=== PATIENT | male | born 1980 | race Caucasian/White ===

== ENCOUNTER 2022-07-09 10:38 | Day surgery (SDC) | payer OTHER, SELFPAY ==
[2022-07-09] VITALS (9 sets, daily range): BP systolic 137–162; BP diastolic 82–105; PULSE 87–98; RESP 12–18; TEMP 36.7–37.2; O2SAT 93–98; BMI 34.3
--- NOTE | 2022-07-09 10:50 | ED.ABDPAIN ---
HPI - Abdominal Pain General Chief Complaint: Abdominal Pain Stated Complaint: Abdominal pain Time Seen by Provider: 07/09/22 10:48 History of Present Illness HPI narrative: This 42-year-old male comes in reporting abdominal pain that began last evening. He had similar abdominal pain about a month ago that resolved after few days. He states that this pain is constant and is worse when taking a deep breath and when standing up straight. The pain is located in his lower abdomen and extends a bit toward the right lower quadrant. He does not report any nausea, vomiting, lightheadedness, diarrhea. He states that he did have some chills last night. He measured a temperature at 99? F. Related Data Home Medications Medication Instructions Recorded Confirmed No Known Home Medications 04/28/22 07/09/22 Allergies Allergy/AdvReac Type Severity Reaction Status Date / Time No Known Drug Allergies Allergy Verified 07/09/22 12:00 Review of Systems Status of ROS Reports: 10 or more systems reviewed and unremarkable except as noted in History and below Narrative Constitutional: No fevers, no weight gain or loss. Eyes: No discharge. No vision changes. HENT: No congestion, no sore throat, no ear pain. Cardiovascular: No chest pain, no palpitations. Respiratory: No shortness of breath, no wheezes, no cough. Gastrointestinal: No vomiting, no diarrhea. Abdominal pain as described above. Genitourinary: No dysuria, no hematuria. Musculoskeletal: Normal range of motion. Skin: No rashes, no pruritis. Neurological: No dizziness, weakness, sensory change, speech change. Endo/Heme/Allergies: No bruising or bleeding. No polydipsia. Pysch: no suicidality, no anxiety, no insomnia. All other systems reviewed and are negative. PFSH PFSH Social History Smoking Status: Never smoker Do you use any of these nicotine containing products: None How often do you have a drink containing alcohol: never How often do you have six or more drinks on one occasion: Never AUDIT-C Alcohol total score: 0 Non-prescribed substance use: denies use service: No Exam Narrative: Exam Narrative: Constitutional: Well-developed, well-nourished, no acute distress. HEENT: Normocephalic, atraumatic. Neck: Normal range of motion. Nontender. Supple. Heart: Regular. No murmurs. Normal rate. Intact distal pulses. Lungs: Clear to auscultation. No chest discomfort. No wheezes, rhonchi, or rales. Abdomen: Decreased bowel sounds. Tenderness in the lower abdomen with mild rebound tenderness. Genitalia: Deferred. Back: No midline tenderness. Normal range of motion. Extremities: Normal range of motion. No injury. Skin: Intact. No rash. Warm. No erythema or pallor. Neurologic: No altered sensation. No weakness. Alert and oriented. Psychiatric: No suicidality. No anxiety or depression. No insomnia. Nursing notes and vitals signs are reviewed. Const: Vital Signs, click to edit/add: Vital Signs - 24 hr 07/09/22 10:45 Temperature 98.9 F Pulse Rate [Left P ulse Oximeter] 95 Respiratory Rate 16 Blood Pressure [Ri ght Upper Arm] 150/95 H Pulse Oximetry 98 Oxygen Delivery Me thod Room Air Course Vital Signs Vital signs: Initial Vital Signs Temperature 98.9 F 07/09/22 10:45 Temperature Source Temporal Artery Scan 07/09/22 10:45 Pulse Rate 95 07/09/22 10:45 Pulse Rhythm 07/09/22 10:45 Pulse Strength 3+ Normal 07/09/22 10:45 Respiratory Rate 16 07/09/22 10:45 Blood Pressure 150/95 H 07/09/22 10:45 Blood Pressure Mean 113 07/09/22 10:45 Blood Pressure Position Sitting 07/09/22 10:45 Pulse Oximetry 98 07/09/22 10:45 Oxygen Delivery Method 07/09/22 10:45 Vital Signs Temperature 98.9 F 07/09/22 10:45 Pulse Rate 95 07/09/22 10:45 Respiratory Rate 16 07/09/22 10:45 Blood Pressure 150/95 H 07/09/22 10:45 Pulse Oximetry 98 07/09/22 10:45 Oxygen Delivery Method 07/09/22 10:45 Temperature 98.9 F 07/09/22 10:45 Pulse Rate 95 07/09/22 10:45 Respiratory Rate 16 07/09/22 10:45 Blood Pressure 150/95 H 07/09/22 10:45 Pulse Oximetry 98 07/09/22 10:45 Oxygen Delivery Method 07/09/22 10:45 MDM - Abdominal Pain MDM Narrative Medical decision making narrative: This patient comes in with abdominal pain as described above. A CT scan of the abdomen and pelvis with IV contrast is completed and does show evidence of acute appendicitis that is uncomplicated. Lab results show a elevated white count at around 15,000. I did speak with the surgeon on-call, Dr. Sheets, who is seeing the patient and will arrange for appendectomy. Lab Data Labs: Lab Results 07/09/22 07/09/22 Range/Units : 11: WBC 15.73 H (4.50-11.00) K/uL RBC 5.19 (4.30-5.90) m/uL Hgb 15.3 (13.5-17.5) gm/dL Hct 45.7 (37.0-53.0) % MCV 88 (80-100) fL MCH 30 (26-34) pg MCHC 34 (32-36) gm/dL RDW Coeff of Fatoumata 12.3 (11.5-15.5) % Plt Count 263 (140-440) K/uL Neut % (Auto) 79.4 H (42.0-72.0) % Lymph % (Auto) 9.8 L (20-44) % [place] % (Auto) 9.9 (0.0-11.0) % Eos % (Auto) 0.6 (0.0-7.0) % Baso % (Auto) 0.2 (0.0-3.0) % Neut # (Auto) 12.50 H (1.7-7.0) K/uL Lymph # (Auto) 1.50 (0.90-2.90) K/uL [place] # (Auto) 1.60 H (0.00-0.90) K/UL Eos # (Auto) 0.10 (0.00-0.50) K/uL Baso # (Auto) 0.00 (0.00-0.30) K/uL Abs Immat Gran (auto) 0.00 (0.00-0.30) K/uL Imm/Tot Granulo (auto) 0.1 % Sodium 137 (135-149) mmol/L Potassium 4.2 (3.6-5.1) mmol/L Chloride 103 (96-114) mmol/L Carbon Dioxide 23 (20-32) mmol/L BUN 13 (5-24) mg/dL Creatinine 0.8 (0.5-1.5) mg/dL Estimated Creat Clear 134.55 Estimated GFR 113 ml/min Glucose 97 (60-115) mg/dL Calcium 9.1 (8.4-10.6) mg/dL Imaging Data CT scan - abdomen: Radiologist's impression: Acute uncomplicated appendicitis. Discharge Plan Discharge Clinical Impression: Acute appendicitis Patient Disposition: Admitted As Inpatient Condition: Unchanged Prescriptions: No Action No Known Home Medications Follow Up/Referrals: Provider,Not a Local [Primary Care Provider] -
--- NOTE | 2022-07-09 11:07 | CRLHL7_ITS ---
For Patients: As a result of the Century Cures Act, medical imaging exams and procedure reports are released immediately into your electronic medical record. You may view this report before your referring provider. If you have questions, please contact your health care provider. INDICATION: Lower abdominal pain COMPARISON: None TECHNIQUE: CT examination of the abdomen and pelvis was performed following the uneventful intravenous administration of 128 cc of Isovue 370. Thin section axial images were obtained from the lung bases through the pubic symphysis. Oral contrast was not administered. Please note that all CT scans at this facility use dose modulation, iterative reconstruction, and/or weight-based dosing when appropriate to reduce radiation dose to as low as reasonably achievable. FINDINGS: LUNG BASES: Trace basilar atelectasis parentthe heart size is normal at the lung bases. Small hiatal hernia LIVER/BILIARY SYSTEM:The liver is normal in size and configuration. There is no focal mass and there is no intra- or extra hepatic biliary ductal dilatation.Steatosis. Surgically absent gallbladder ADRENALS: Normal KIDNEYS, URETERS and BLADDER:The kidneys appear normal. No visible mass, calculus or hydronephrosis. The ureters and bladder as visualized appear normal. SPLEEN:Normal appearance. PANCREAS: Appears normal. RETROPERITONEUM and MESENTERY: There is no mass, adenopathy or aortic aneurysm. GASTROINTESTINAL SYSTEM: The appendix is well seen and is abnormal. It is distended and inflamed with moderate surrounding inflammatory change and mild fluid but no collection or free air. Elsewhere, fecal retention and diverticulosis. PELVIS: No mass, adenopathy or free fluid. OSSEOUS STRUCTURES and ABDOMINAL WALL: There is an age-appropriate appearance of the osseous structures.No significant abdominal wall defect. IMPRESSION: Acute uncomplicated appendicitis. Please note that all CT scans at this facility use dose modulation, iterative reconstruction, and/or weight-based dosing when appropriate to reduce radiation dose to as low as reasonably achievable. Dictated by Lonnie Kuhn MD @ 07/09/2022 12:32:11 PM (Electronically Signed)
[2022-07-09 11:34] LABS: Basophils Percent Auto 0.2 % (0.0-3.0); Eosinophils Percent Auto 0.6 % (0.0-7.0); Hematocrit 45.7 % (37.0-53.0); Hemoglobin* 15.3 gm/dL (13.5-17.5); Immature Granulocytes Pct Auto 0.1 %; Lymphocytes Percent Auto 9.8 % (20-44); Mean Corpuscular HGB Conc 34 gm/dL (32-36); Mean Corpuscular Hemoglobin 30 pg (26-34); Mean Corpuscular Volume 88 fL (80-100); Monocytes Percent Auto 9.9 % (0.0-11.0); Neutrophils Percent Auto 79.4 % (42.0-72.0); Platelet Count* 263 K/uL (140-440); RDW Coefficient of Variation % 12.3 % (11.5-15.5); Red Blood Count 5.19 m/uL (4.30-5.90); White Blood Count* 15.73 K/uL (4.50-11.00)
[2022-07-09 11:47] LABS: Slide Review Reflex No
[2022-07-09 11:55] LABS: Chloride* 103 mmol/L (96-114); Potassium* 4.2 mmol/L (3.6-5.1); Sodium* 137 mmol/L (135-149)
[2022-07-09 11:58] LABS: Blood Urea Nitrogen* 13 mg/dL (5-24); Calcium* 9.1 mg/dL (8.4-10.6); Carbon Dioxide* 23 mmol/L (20-32); Glucose* 97 mg/dL (60-115)
[2022-07-09 12:00] LABS: Creatinine* 0.8 mg/dL (0.5-1.5); Est. Creatinine Clearance* 134.55; Estimated Glomerular Filt Rate 113 ml/min
--- NOTE | 2022-07-09 13:29 | P.GSHP_ITS ---
History of Present Illness History of Present Illness Date Seen: 07/09/22 Chief complaint: Abdominal pain Narrative: Wagner Delaney is a 42 year old male presented to emergency room with abdominal pain and I was asked by Dr. Mcnamara to see him in consultation. Patient states that a few weeks ago he had periumbilical pain. He was seen in Urgent care and was thought to have constipation. He continued to have dull aching episodes of periumbilical pain but yesterday the pain increased in severity. The pain was getting progressively worse and migrated to the right lower quadrant. The pain was worse with touching the right side of the abdomen. Patient also had chills yesterday. He denies any nausea or vomiting. In the emergency room he was found to have an elevated WBC of 15. An abdominal CT was obtained that showed a dilated appendix with periappendiceal inflammation. Review of Systems Narrative: General: no fevers HENT: no problems swallowing CV: no shortness of breath Resp: no cough GI: See above : no dysuria, no increased urinary frequency, no hematuria Skin: no new rashes Musculoskeletal: no back pain Neuro: no muscle weakness Psyche: no depression, no anxiety PFSH [facility] Medical History Obstructive sleep apnea Surgical History S/P laparoscopic cholecystectomy Social History (Updated 07/09/22 @ 13:33 by Jah Sheets MD) Narrative: Patient works as a lead software tester. He denies smoking and occasionally drinks alcohol. Smoking Status: Never smoker Do you use any of these nicotine containing products: None How often do you have a drink containing alcohol: never How often do you have six or more drinks on one occasion: Never AUDIT-C Alcohol total score: 0 Non-prescribed substance use: denies use service: No Meds Home Medications and Allergies Home Medications Medication Instructions Recorded Confirmed Type No Known Home Medications 04/28/22 07/09/22 History Allergies Allergy/AdvReac Type Severity Reaction Status Date / Time No Known Drug Allergies Allergy Verified 07/09/22 12:00 Exam Narrative: Exam Narrative: General appearance: Alert, cooperative, and in no distress Pulmonary: Chest symmetric, lungs clear bilaterally Cardiovascular Heart: Regular rate and rhythm, S1, S2, no murmurs/rubs/gallops Gastrointestinal Abdominal: soft, not distended, tender to palpation in bilateral lower quadrants, worse on the right side. Patient has tenderness to percussion in bilateral lower quadrants as well. Skin: Normal skin color, texture, and turgor. No rashes or lesions. Psychiatric: Alert, cooperative, normal affect. Const: Vital Signs, click to edit/add: Vital Signs - 24 hr 07/09/22 10:45 Temperature 98.9 F Pulse Rate [Left P ulse Oximeter] 95 Respiratory Rate 16 Blood Pressure [Ri ght Upper Arm] 150/95 H Pulse Oximetry 98 Oxygen Delivery Me thod Room Air Results Results CT scan - pelvis: image reviewed Assessment and Plan Assessment and plan (1) Acute appendicitis: Status: Acute Plan 42-year-old male presents with acute appendicitis. I discussed with the patient my clinical findings. We also talked about his CT findings. It does seem like his appendix might be retrocecal. There is no evidence of an abscess. I recommended to proceed with laparoscopic appendectomy . The procedure was discussed in detail. The risks associated procedure including infection, bleeding, and injury to intra-abdominal organs were all discussed with the patient, and he agreed to proceed.
[2022-07-09 13:32] LABS: PCR FLU A Negative PCR FLU A (Negative); PCR FLU B Negative PCR FLU B (Negative); PCR RSV Negative PCR RSV (Negative)
[2022-07-09 13:38] LABS: SARS PCR* Negative SARS-CoV-2 (Negative)
[2022-07-09] MEDS: BUPIVACAINE 0.25% 30 ML INJECTION (14:28)
--- NOTE | 2022-07-09 14:38 | P.GSOP_ITS ---
Operative Note Date of procedure: 07/09/22 Type of Procedure: 1. Laparoscopic appendectomy. Procedure Description: After discussing the risks and benefits of the procedure, the patient signed informed consent.? The operative site was marked and the patient was brought to the operating room and placed on the operating table in supine position.? Care was taken to pad the patient's pressure points.?? The patient was then intubated by anesthesia.?? The operative site was then prepped and draped in the usual sterile fashion.? A time-out was then performed. ? A 5-mm laparoscopy port was placed in the left upper quadrant guided by a 5-mm laparoscope placed into a translucent trochar. Passage through the layers of the abdominal wall was visualized with the laparoscope. A pneumoperitoneum was established. A 30-degree 5-mm laparoscope was advanced into the abdomen. The abdomen was briefly surveyed, and there was no evidence of diffuse peritonitis. A 12-mm port and a 5-mm port were placed suprapubically under direct visualization by laparoscope. Left upper quadrant entrance port was then examined intraabdominally by placing the camera through the left lower quadrant port and no intraabdominal injury was seen. The patient was placed in Trendelenburg position, allowing the abdominal contents to shift cephalad. The appendiceal tip appeared to have fibrinous exudate and was dilated. It was attached to the abdominal wall. Those adhesions were taken down bluntly with suction tip. The appendix was then grasped. Its distal third appeared to be inflamed but the rest of the appendix was long but normal in size. There was no inflammation noted at the appendiceal base. The appendix was grasped and dissected from the peritoneum using Harmonic scalpel. The appendiceal artery was skeletonized with the Harmonic scalpel. It was then clipped with 5 mm clips on the patient's side, and divided with Harmonic scalpel on the specimen side. The appendiceal base was skeletonized further with Harmonic scalpel. A 45mm vascular load Endo-AROLDO stapler was advanced through the 12-mm port into the abdomen and appendix was stapled off at its base. The appendix was then placed in an endoscopic retrieval bag and extracted from the abdomen through the 12-mm port. The abdomen was surveyed for hemostasis. And no bleeding was seen. The 12-mm port was withdrawn and the fascial defect was closed with 0-0 Vicryl stitch using Neal Tamar needle under direct visualization. The 5-mm port was removed under direct visualization. The left upper quadrant port was used to evacuate the pneumoperitoneum and then withdrawn. The skin incisions were c losed with 4-0 monocryl. Steri-Strips were applied over the incisions. All counts were correct at the end of the case. The patient tolerated this procedure well and was transferred to PACU in stable condition. Findings: Inflamed appendiceal tip with no evidence of perforation. Anesthesia: GETA Surgeon: Jah Sheets MD Estimated blood loss (mL): 5 Condition: stable Disposition: PACU
[2022-07-09] MEDS: LACTATED RINGERS 1000 ML 1,000 ML 100 ML IV (14:45)
--- NOTE | 2022-07-09 14:45 | W.ANESCHARGE ---
Anesthesia Charges Start Date/Time Anesthesia Start Date: 07/09/22 Anesthesia Start Time: 13:30 Stop Date/Time Anesthesia Stop Date: 07/09/22 Anesthesia Stop Time: 14:46 Summary Emergency: Yes
[2022-07-09] MEDS: MEPERIDINE 25 MG/ML INJ 12.5 MG IVP (14:50)
--- NOTE | 2022-07-09 15:13 | SUR.PHASEI ---
Patient transferred to Same Day Surgery to administer oral medications per ONEIDA Carrington.
[2022-07-09] MEDS: HYDROCODONE-ACETAMIN 5-325 MG 1 TAB PO (15:30)
== END 2022-07-09 16:10 | disposition home or self-care (01) ==
LOC: ED 13:12 → SS 13:37
PROVIDERS: Emergency Provider Emergency Medicine Emergency Medical Services; Visit Provider Surgery
PROC: 0DTJ4ZZ Resection of Appendix, Percutaneous Endoscopic Approach (ICD-10-PCS; CPT 44970; principal; 2022-07-09 13:00)
DX: K35.80 Unspecified acute appendicitis (principal); R10.31 Right lower quadrant pain; G47.33 Obstructive sleep apnea (adult) (pediatric)
CPT/HCPCS: 44970; 00840; 36415; 74177; 80048; 85025; 87502; 87634; 87635; 88304; 99140; 99284; 99285; A9270; J0330; J1100; J1885; J2175; J2250; J2405; J2543; J2704; J3010; J3490; J7120; Q9967

== ENCOUNTER 2024-06-12 11:36 | Outpatient (CLI) | payer OTHER, SELFPAY ==
--- OUTSIDE RECORDS SUMMARY | 2024-06-13 10:24 | XMS_ITS | Clinical Summary ---
Author Organization [facility] Address [address] [place] [address] Care Team Providers Care Network Operations Center Engineer Name Role Phone Found, No Pcp MD Primary Care Provider Unavailab le Source Comments You are receiving this document as you are listed as the primary care provider,follow-up provider, or the patient has been referred to you for consultation.This is in compliance with the Medicare andMedicaid EHR Incentive Program,which states Providers who transition their patient to another setting of careor provider of care or refers their patient to another provider of care shouldprovide summary care record for each transition of care or referral. [id number] Allergies No known active allergies Medications No known medications Active Problems No known active problems Immunizations Name Administration Dates Next Due DTP 01/16/1985, 1,01/15/1980, 980,1979 Influenza IIV4 (Quadrivalent ) 0.5mL (22076) 06/25/2016 MMR 07/11/1991,10/08/1980 OPV, Trivalent (Orimune or tOPV) 985,01/24/1981,1979, 980 Td 06/12/1997 Varicella 04/18/1997(Deferred: Immune by Rangel willingham) Family History Medical History Relation Name Comments Alcohol/Drug Abuse Father Bipolar Disorder Father Relation Name Status Comments Father suicide Mother Alive Social History Tobacco Use Types Packs/Day Years Used Date Smoking Tobacco: Former Cigarettes 0.5 10 0 08/29/2004 - 08/29/2014 Smokeless Tobacco: Never Alcohol Use Standard Drinks/Week Comments Yes 0 (1 standard drink = 0.6 oz pur e alcohol) rare Sex and Gender Information Value Date Recorded Sex Assigned at Not on file Gender Identity Not on file Sexual Orientation Not on file Last Filed Vital Signs Vital Sign Reading Time Taken Comments Blood Pressure 141/84 11/20/2016 10:04 AM CDT Pulse 91 11/20/2016 10:04 AM CDT Temperature 35.8 ??C (96.4 ??F) 11/20/2016 10:04 AM C DT Respiratory Rate - - Oxygen Saturation - - Inhaled Oxygen Concentration - - Weight 121.6 kg (268 lb) 05/01/2016 9:46 AM CDT Height - - Body Mass Index - - Plan of Treatment Health Maintenance Due Date Last Done Comments Hep C Screening (Preventive Services) 1979 HIV Screening (Preventive Services) 1995 DTaP/Tdap/Td (6 - Tdap) 06/13/1997 06/12/19 97, 01/16/1985, 01/24/1981, Additional history exists Adult Preventive Visit 1997 HepB (1) 1998 Cholesterol 2014 COVID-19 Vaccine ( season) 2024 Influenza (#1) 2024 06/25/2016 Zoster/Shingles (1 of 2) 2029 IPV (Polio) Completed 01/16/1985, 12/28, 1979, Additional history exists HPV Vaccine Aged Out No longer eligi ble based on patient's age to complete this topic HepA Aged Out No longer eligi ble based on patient's age to complete this topic Hib Aged Out No longer eligi ble based on patient's age to complete this topic Infant RSV Aged Out No longer eligi ble based on patient's age to complete this topic MCV4 Aged Out No longer eligi ble based on patient's age to complete this topic Pneumococcal Aged Out No longer eligi ble based on patient's age to complete this topic Care Teams Network Operations Center Engineer Relationship Specialty Start Date End Date Found, No Pcp, [address] [place] [address] PCP - General 05/01/16
--- OUTSIDE RECORDS SUMMARY | 2024-06-13 10:24 | XMS_ITS | Encounter Summary ---
[facility] Address [address] [facility] [place] [address] Care Team Providers Care Physics Tutor Name Role Phone Found, No Pcp Primary Care Provider Unavailab le Encounter Details Date Type Department Care Team (Latest Contact Info) Description 02/16/2000 Orders Only Salvador Crisostomo MD [address] [place] [address] Social History Tobacco Use Types Packs/Day Years Used Date Smoking Tobacco: Never Assessed Sex and Gender Information Value Date Recorded Sex Assigned at Not on file Gender Identity Not on file Sexual Orientation Not on file documented as of this encounter Plan of Treatment Not on file documented as of this encounter Visit Diagnoses Not on filedocumented in this encounter Care Teams Physics Tutor Relationship Specialty Start Date End Date Found, No Pcp, [address] [place] [address] PCP - General 05/01/16 documented as of this encounter
--- OUTSIDE RECORDS SUMMARY | 2024-06-13 10:24 | XMS_ITS | Encounter Summary ---
Author Organization [facility] Address [address] [facility] [address] Care Team Providers Care Industrial Gas Fitter Helper Name Role Phone Found, No Pcp Primary Care Provider Unavailab le Encounter Details Date Type Department Care Team (Latest Contact Info) Description 09/23/1997 Orders Only Nam White MD [address] [place] [address] Social History Tobacco Use Types Packs/Day Years Used Date Smoking Tobacco: Never Assessed Sex and Gender Information Value Date Recorded Sex Assigned at Not on file Gender Identity Not on file Sexual Orientation Not on file documented as of this encounter Plan of Treatment Not on file documented as of this encounter Visit Diagnoses Not on filedocumented in this encounter Care Teams Industrial Gas Fitter Helper Relationship Specialty Start Date End Date Found, No Pcp, [address] [place] [address] PCP - General 05/01/16 documented as of this encounter
== END 2024-06-12 11:37 | disposition home or self-care (01) ==
LOC: NFLDREF 06-13 10:23
PROVIDERS: PCP Family Medicine; Referring Provider Family Medicine; Visit Provider Family Medicine
DX: Z00.00 Encounter for general adult medical examination without abnormal findings (principal); G47.30 Sleep apnea, unspecified; I83.93 Asymptomatic varicose veins of bilateral lower extremities; Z80.42 Family history of malignant neoplasm of prostate; Z12.5 Encounter for screening for malignant neoplasm of prostate
CPT/HCPCS: 80053; 80061; G0103

== ENCOUNTER 2024-07-02 12:39 | Outpatient (CLI) | payer OTHER, SELFPAY ==
--- OUTSIDE RECORDS SUMMARY | 2024-07-02 12:44 | XMS_ITS | Encounter Summary ---
[facility] Address [address] [facility] [place] [address] Care Team Providers Care Textile Machinery Sales Representative Name Role Phone Found, No Pcp Primary Care Provider Unavailab le Encounter Details Date Type Department Care Team (Latest Contact Info) Description 02/16/2000 Orders Only Salvador Crisostomo MD [address] [place] [address] Social History Tobacco Use Types [...] on filedocumented in this encounter Care Teams Textile Machinery Sales Representative Relationship Specialty Start Date End Date Found, No Pcp, [address] [place] [address] PCP - General 05/01/16 documented as of this encounter
--- OUTSIDE RECORDS SUMMARY | 2024-07-02 12:44 | XMS_ITS | Clinical Summary ---
Author Organization [facility] Address [place], [place] [address] Care Team Providers Care Spanish Speaking Babysitter Name Role Phone Pcp, No Primary Care Provider Unavailabl e Allergies No known active allergies Medications Medication Sig Dispensed Refills Start Date End Date Status DIPHENHYDRAMINE 25 MG TAB 1 to 2 tabs as needed for itching 0 Active MAG HYDROX/AL HYDROX/SIMETH (MYLANTA ORAL) Take by mouth. Active oxyCODONE-acetamin ophen, 5-325 mg, (PERCOCET) per tablet Take 1-2 tablets by mouth every 4 hours if needed for Pain (For moderate pain.). Max acetaminophen dose: 4000mg in 24 hrs. 30 tablet 0 01/06/2014 Active Social History Tobacco Use Types Packs/Day Years Used Date Smoking Tobacco: Former Cigarettes Comments:quit a couple of we eks ago Alcohol Use Standard Drinks/Week Comments Yes 0 (1 standard drink = 0.6 oz pur e alcohol) occas Sex and Gender Information Value Date Recorded Sex Assigned at Not on file Gender Identity Not on file Sexual Orientation Not on file Obstetrics History Last Filed Vital Signs Vital Sign Reading Time Taken Comments Blood Pressure 126/74 01/14/2014 1:35 PM CDT Pulse 68 01/14/2014 1:35 PM CDT Temperature 37.1 ??C (98.7 ??F) 01/06/2014 10:40 AM C DT Respiratory Rate 16 01/14/2014 1:35 PM CDT Oxygen Saturation 94% 01/06/2014 2:06 PM CDT Inhaled Oxygen Concentration - - Weight 113.9 kg (251 lb) 05/05/2010 12:46 PM CDT Height 185.4 cm (6' 1) 03/05/2007 5:20 PM CDT Body Mass Index 33.12 03/05/2007 5:20 PM CDT Plan of Treatment Upcoming Encounters Date Type Department Care Team (Late st Contact Info) Description 07/02/2024 1:00 PM DIRECTOR OF PROGRAMMING Orders Only [facility] [address] [place] [address] Health Maintenance Due Date Last Done Comments Tdap 1990 Depression screening for age 12+ 1991 HIV for age 15-65 1994 BMI (ht and wt on same day) for age 18+ 1997 Hepatitis C screening for ag e 18-79 1997 Tetanus booster 1999 Lipids for age 35-44 2014 COVID-19 vaccine series (2023- season) 2024 Influenza for age 9-49 04/29/2024 Pneumococcal series for age 6-64 Aged Out No longer eligible based on patient's age to complete this topic Advance Directives * Full Code (Latest Code Status on File) Date Activated Date Inactivated Comments 01/06/2014 8:27 AM 01/06/2014 7:20 PM Care Teams Spanish Speaking Babysitter Relationship Specialty Start Date End Date Pcp, No . PCP - General 01/06/14
--- OUTSIDE RECORDS SUMMARY | 2024-07-02 12:44 | XMS_ITS | Encounter Summary ---
Author Organization [facility] Address [address] [facility] [place] [address] Care Team Providers Care Roller Printing Supervisor Name Role Phone Found, No Pcp Primary Care Provider Unavailab le Encounter Details Date Type Department Care Team (Latest Contact Info) Description 09/23/1997 Orders Only Nam White MD [address] [place] [address] Social History Tobacco Use Types [...] on filedocumented in this encounter Care Teams Roller Printing Supervisor Relationship Specialty Start Date End Date Found, No Pcp, [address] [place] [address] PCP - General 05/01/16 documented as of this encounter
--- OUTSIDE RECORDS SUMMARY | 2024-07-02 12:44 | XMS_ITS | Clinical Summary ---
Author Organization [facility] Address [address] [place] [address] Care Team Providers Care Acquisition Analyst Name Role Phone Found, No Pcp MD [...] for each transition of care or referral. [facility] Allergies No known active allergies Medications No known medications Active Problems No known active problems Immunizations Name Administration Dates Next Due DTP 01/16/1985, 1,01/15/1980, 980,1979 Influenza IIV4 (Quadrivalent ) 0.5mL (00804) 06/25/2016 MMR 07/11/1991,10/08/1980 OPV, Trivalent (Orimune or [...] age to complete this topic Care Teams Acquisition Analyst Relationship Specialty Start Date End Date Found, No Pcp, [address] [place] [address] PCP - General 05/01/16
== END 2024-07-02 12:40 | disposition home or self-care (01) ==
LOC: US 12:39
PROVIDERS: PCP Family Medicine; Visit Provider Family Medicine
DX: I83.93 Asymptomatic varicose veins of bilateral lower extremities (principal); I87.2 Venous insufficiency (chronic) (peripheral)
CPT/HCPCS: 93970

== ENCOUNTER 2024-07-11 12:00 | Outpatient (CLI) | payer OTHER, SELFPAY ==
--- OUTSIDE RECORDS SUMMARY | 2024-07-11 12:02 | XMS_ITS | Clinical Summary ---
Author Organization [facility] Address [address] [place] [address] Care Team Providers Care Fructose Loader Name Role Phone Found, No Pcp MD [...] for each transition of care or referral. [facility] Allergies No known active allergies Medications No known medications Active Problems No known active problems Immunizations Name Administration Dates Next Due DTP 01/16/1985, 1,01/15/1980, 980,1979 Influenza IIV4 (Quadrivalent ) 0.5mL (71515) 06/25/2016 MMR 07/11/1991,10/08/1980 OPV, Trivalent (Orimune or [...] Health Maintenance Due Date Last Done Comments Colon Cancer Screening Plan Due 1979 Hep C Screening (Preventive Services) 1979 HIV [...] on patient's age to complete this topic RSV Aged Out No longer eligi ble based on patient's age to complete this topic MCV4 Aged Out No longer eligi ble based on patient's age to complete this topic Pneumococcal Aged Out No longer eligi ble based on patient's age to complete this topic Care Teams Fructose Loader Relationship Specialty Start Date End Date Found, No Pcp, [address] [place] [address] PCP - General 05/01/16
--- OUTSIDE RECORDS SUMMARY | 2024-07-11 12:02 | XMS_ITS | Clinical Summary ---
Author Organization [facility] Address [place], [place] [address] Care Team Providers Care Motor Lodge Clerk Name Role Phone Pcp, No Primary Care [...] 24 hrs. 30 tablet 0 01/06/2014 Active Encounters Date Type Department Care Team Description 07/02/2024 1:00 PM SENIOR TECHNICAL SUPPORT ENGINEER Orders Only [facility] at [facility] & [address] [address] 2 scans: (2-Ord) US VENOUS INSUFFICIENCY LOWER EXTREMITY BILATERAL ([id number]) 07/02/2024 Travel from Last 3 Months Social History Tobacco Use Types Packs/Day Years [...] 03/05/2007 5:20 PM CDT Plan of Treatment Health Maintenance Due Date Last Done Comments Tdap 1990 Depression screening for age 12+ 1991 HIV for age 15-65 1994 BMI (ht and wt on same day) for age 18+ 1997 Hepatitis C screening for ag e 18-79 1997 Tetanus booster 1999 COVID-19 vaccine series (2023- season) 2024 Influenza for age 9-49 04/29/2024 Colonoscopy through age 75 2024 Lipids for age 45-75 2024 Pneumococcal series for age 6-64 Aged Out No longer eligible based on patient's age to complete this topic Procedures Procedure Name Priority Date/Time Associated Diagnosis Comments US VENOUS INSUFFICIENCY LOWER EXTREMITY BILATERAL Routine 07/02/2024 3:14 PM SENIOR TECHNICAL SUPPORT ENGINEER Asymptomatic varicose veins of bilateral lower extremities from Last 3 Months Results * US VENOUS INSUFFICIENCY LOWER EXTREMITY BILATERAL (07/02/2024 3:14 PM SENIOR TECHNICAL SUPPORT ENGINEER) Anatomical Region Laterality Modality LEGS Ultrasound 07/02/2024 12:5 7 PM SENIOR TECHNICAL SUPPORT ENGINEER Narrative 2024 10:04 AM SENIOR TECHNICAL SUPPORT ENGINEER VASCULAR ULTRASOUND REPORT YAMILE ECKERT Accession#: ?? [id number] : ?1980 ??Study Date: ?? 07/02/2024 12:57:06 PM Age: ?43 years ?? Tech: ? BSG Gender: M ?Referring MD: QUOC SANDOVAL Site: [facility] Study performed: ?Duplex US venous insufficiency, (bilateral). Indication for study: LE pain/edema and varicose veins Study Quality: ?Good TECHNIQUE: Lower/upper extremity veins were examined with duplex ultrasound, color-flow and spectral Doppler per exam protocol. Vein compressibility by transducer pressure was used to evaluate presence/absence of DVT/SVT. Venous flow and competence was evaluated by flow augmentation maneuvers per exam protocol. Insufficiency studies were performed with the patient in upright position, with vein diameters measured in mm, and reflux. IMPRESSION: 1. No evidence of deep vein thrombosis in the right and left lower extremity. 2. Deep vein insufficiency noted in the right common femoral, profunda femoral, femoral and popliteal veins. 3. Deep vein insufficiency noted in the left femoral and popliteal veins. 4. Superficial venous insufficiency was noted in the right sapheno-femoral junction and greater saphenous vein at distal thigh and mid calf. 5. Superficial venous insufficiency was noted in the left sapheno-femoral junction and greater saphenous vein at proximal thigh, mid thigh, distal thigh, upper calf and mid calf. 6. Superficial venous insufficiency was noted in the left sapheno-popliteal junction and small saphenous vein at proximal calf. 7. Incompetent varicose and/or expander veins as listed below. COMPARISON: No prior study available for comparison. FINDINGS: Right Lower Extremity: No evidence of DVT. Varicose vein at medial proximal thigh, 5.3 mm diameter, 5.0 sec reflux. Varicose vein at anterior mid thigh, 5.6 mm diameter, 3.9 sec reflux. Varicose vein at medial proximal calf, 4.5 mm diameter, 1.4 sec reflux. Varicose vein at posterior proximal calf, 6.2 mm diameter, 3.3 sec reflux. Left Lower Extremity: No evidence of DVT. Perforating vein in posterior proximal calf, 8.7 mm diameter, 1.5 sec reflux. Varicose vein at medial mid thigh, 5.5 mm diameter, 2.4 sec reflux. Varicose vein at medial mid calf, 7.0 mm diameter, 1.9 sec reflux. Varicose vein at medial distal calf, 4.6 mm diameter, 1.3 sec reflux. MEASUREMENTS: + +--------+----+--------+------+ RIGHT ? Compress SVT Diameter Reflux ?(mm) ?? (secs) + +--------+----+--------+------+ SFJ ? yes ? None ??9.9 ?? 4.8 ?? + +--------+----+--------+------+ GSV THIGH PRX yes ? None ??7.9 ?? 0.0 ?? + +--------+----+--------+------+ GSV THIGH MID yes ? None ??6.9 ?? 0.0 ?? + +--------+----+--------+------+ GSV THIGH DST yes ? None ??6.9 ?? 0.5 ?? + +--------+----+--------+------+ GSV KNEE ? yes ? None ??7.6 ?? 0.0 ?? + +--------+----+--------+------+ GSV CALF UPPER yes ? None ??3.2 ?? 0.0 ?? + +--------+----+--------+------+ GSV CALF MID ?? yes ? None ??2.9 ?? 0.8 ?? + +--------+----+--------+------+ GSV CALF LOW ?? yes ? None ??4.1 ?? 0.0 ?? + +--------+----+--------+------+ SSV KNEE/SPJ ?? yes ? None ??4.4 ?? 0.0 ?? + +--------+----+--------+------+ SSV CALF PRX ?? yes ? None ??3.9 ?? 0.0 ?? + +--------+----+--------+------+ SSV CALF MID ?? yes ? None ??4.9 ?? 0.0 ?? + +--------+----+--------+------+ SSV CALF DST ?? yes ? None ??4.6 ?? 0.0 ?? + +--------+----+--------+------+ + +--------+----+ +------+ LEFT ? Compress SVT Diameter (mm) Reflux ? (secs) + +--------+----+ +------+ SFJ ? yes ? None ? 8.3 ? 0.5 ?? + +--------+----+ +------+ GSV THIGH PRX yes ? None ? 6.9 ? 0.7 ?? + +--------+----+ +------+ GSV THIGH MID yes ? None ? 7.0 ? 1.1 ?? + +--------+----+ +------+ GSV THIGH DST yes ? None ? 5.3 ? 2.1 ?? + +--------+----+ +------+ GSV KNEE ? yes ? None ? 5.5 ? 0.0 ?? + +--------+----+ +------+ GSV CALF UPPER yes ? None ? 5.0 ? 1.2 ?? + +--------+----+ +------+ GSV CALF MID ?? yes ? None ? 5.6 ? 2.3 ?? + +--------+----+ +------+ GSV CALF LOW ?? yes ? None ? 4.1 ? 0.0 ?? + +--------+----+ +------+ SSV KNEE/SPJ ?? yes ? None ? 8.8 ? 3.9 ?? + +--------+----+ +------+ SSV CALF PRX ?? yes ? None ? 8.6 ? 3.1 ?? + +--------+----+ +------+ SSV CALF MID ?? yes ? None ? 3.7 ? 0.0 ?? + +--------+----+ +------+ SSV CALF DST ?? yes ? None ? 5.8 ? 0.0 ?? + +--------+----+ +------+ can't evaluate Perforating Vein + + + + LEFT Location ? Diameter (mm) Reflux (secs) + + + + posterior proximal calf ? 8.7 ? 1.5 ? + + + + Varicose Veins + + + + RIGHT Location ? Diameter (mm) Reflux (secs) + + + + medial proximal thigh ? 5.3 ? 5.0 ? + + + + anterior mid thigh ? 5.6 ? 3.9 ? + + + + medial proximal calf ? 4.5 ? 1.4 ? + + + + posterior proximal calf ? 6.2 ? 3.3 ? + + + + + + + + LEFT Location ? Diameter (mm) Reflux (secs) + + + + medial mid thigh ? 5.5 ? 2.4 ? + + + + medial mid calf ? 7.0 ? 1.9 ? + + + + medial distal calf ? 4.6 ? 1.3 ? + + + + ? + + + + DEEP SYSTEM +----+--------+-----+ +--------+----+ + ? RIGHT ?? RIGHT RIGHT ? LEFT ? LEFT LEFT ? Compress DVT ?? Reflux (secs) Compress DVT Reflux (secs) +----+--------+-----+ +--------+----+ + CFV yes ? None 2.8 ? yes ? None 0.0 ? +----+--------+-----+ +--------+----+ + PFV yes ? None 1.9 ? yes ? None 0.0 ? +----+--------+-----+ +--------+----+ + FV ?? yes ? None 2.4 ? yes ? None 2.3 ? +----+--------+-----+ +--------+----+ + POPV yes ? None 1.7 ? yes ? None 2.8 ? +----+--------+-----+ +--------+----+ + can't evaluate Leland Nugent MD. Electronically signed on 2024 10:04:37 AM This study was performed and interpreted by a service accredited by the Intersocietal Accreditation Commission (IAC/Vascular), www.intersocietal.org/vascular Report generated by [employer]. ??Final ?? Procedure Note Leland Nugent MD - 2024 VASCULAR ULTRASOUND REPORT YAMILE ECKERT : 1980 Study Date: 07/02/2024 12:57:06 PM Age: 43 years Tech: BSG Gender: M Referring MD: QUOC SANDOVAL Site: [facility] Study performed: Duplex US venous insufficiency, (bilateral). Indication for study: LE pain/edema and varicose veins Study Quality: Good TECHNIQUE: Lower/upper extremity veins were examined with duplex ultrasound,color-flow and spectral Doppler per exam protocol. Vein compressibility bytransducer pressure was used to evaluate presence/absence of DVT/SVT.Venous flow and competence was evaluated by flow augmentation maneuversper exam protocol. Insufficiency studies were performed with the patientin upright position, with vein diameters measured in mm, and reflux. IMPRESSION: 1. No evidence of deep vein thrombosis in the right and left lowerextremity. 2. Deep vein insufficiency noted in the right common femoral, profundafemoral, femoral and popliteal veins. 3. Deep vein insufficiency noted in the left femoral and poplitealveins. 4. Superficial venous insufficiency was noted in the rightsapheno-femoral junction and greater saphenous vein at distal thigh andmid calf. 5. Superficial venous insufficiency was noted in the left sapheno- femoraljunction and greater saphenous vein at proximal thigh, mid thigh, distalthigh, upper calf and mid calf. 6. Superficial venous insufficiency was noted in the leftsapheno-popliteal junction and small saphenous vein at proximal calf. 7. Incompetent varicose and/or expander veins as listed below. COMPARISON: No prior study available for comparison. FINDINGS: Right Lower Extremity: No evidence of DVT. Varicose vein at medial proximal thigh, 5.3 mmdiameter, 5.0 sec reflux. Varicose vein at anterior mid thigh, 5.6 mmdiameter, 3.9 sec reflux. Varicose vein at medial proximal calf, 4.5 mmdiameter, 1.4 sec reflux. Varicose vein at posterior proximal calf, 6.2 mmdiameter, 3.3 sec reflux. Left Lower Extremity: No evidence of DVT. Perforating vein in posterior proximal calf, 8.7 mmdiameter, 1.5 sec reflux. Varicose vein at medial mid thigh, 5.5 mmdiameter, 2.4 sec reflux. Varicose vein at medial mid calf, 7.0 mmdiameter, 1.9 sec reflux. Varicose vein at medial distal calf, 4.6 mmdiameter, 1.3 sec reflux. MEASUREMENTS: + +--------+----+--------+------+ RIGHT Compress SVT Diameter Reflux (mm) (secs) + +--------+----+--------+------+ SFJ yes None 9.9 4.8 + +--------+----+--------+------+ GSV THIGH PRX yes None 7.9 0.0 + +--------+----+--------+------+ GSV THIGH MID yes None 6.9 0.0 + +--------+----+--------+------+ GSV THIGH DST yes None 6.9 0.5 + +--------+----+--------+------+ GSV KNEE yes None 7.6 0.0 + +--------+----+--------+------+ GSV CALF UPPER yes None 3.2 0.0 + +--------+----+--------+------+ GSV CALF MID yes None 2.9 0.8 + +--------+----+--------+------+ GSV CALF LOW yes None 4.1 0.0 + +--------+----+--------+------+ SSV KNEE/SPJ yes None 4.4 0.0 + +--------+----+--------+------+ SSV CALF PRX yes None 3.9 0.0 + +--------+----+--------+------+ SSV CALF MID yes None 4.9 0.0 + +--------+----+--------+------+ SSV CALF DST yes None 4.6 0.0 + +--------+----+--------+------+ + +--------+----+ +------+ LEFT Compress SVT Diameter (mm) Reflux (secs) + +--------+----+ +------+ SFJ yes None 8.3 0.5 + +--------+----+ +------+ GSV THIGH PRX yes None 6.9 0.7 + +--------+----+ +------+ GSV THIGH MID yes None 7.0 1.1 + +--------+----+ +------+ GSV THIGH DST yes None 5.3 2.1 + +--------+----+ +------+ GSV KNEE yes None 5.5 0.0 + +--------+----+ +------+ GSV CALF UPPER yes None 5.0 1.2 + +--------+----+ +------+ GSV CALF MID yes None 5.6 2.3 + +--------+----+ +------+ GSV CALF LOW yes None 4.1 0.0 + +--------+----+ +------+ SSV KNEE/SPJ yes None 8.8 3.9 + +--------+----+ +------+ SSV CALF PRX yes None 8.6 3.1 + +--------+----+ +------+ SSV CALF MID yes None 3.7 0.0 + +--------+----+ +------+ SSV CALF DST yes None 5.8 0.0 + +--------+----+ +------+ can't evaluate Perforating Vein + + + + LEFT Location Diameter (mm) Reflux (secs) + + + + posterior proximal calf 8.7 1.5 + + + + Varicose Veins + + + + RIGHT Location Diameter (mm) Reflux (secs) + + + + medial proximal thigh 5.3 5.0 + + + + anterior mid thigh 5.6 3.9 + + + + medial proximal calf 4.5 1.4 + + + + posterior proximal calf 6.2 3.3 + + + + + + + + LEFT Location Diameter (mm) Reflux (secs) + + + + medial mid thigh 5.5 2.4 + + + + medial mid calf 7.0 1.9 + + + + medial distal calf 4.6 1.3 + + + + + + + + DEEP SYSTEM +----+--------+-----+ +--------+----+ + RIGHT RIGHT RIGHT LEFT LEFT LEFT Compress DVT Reflux (secs) Compress DVT Reflux (secs) +----+--------+-----+ +--------+----+ + CFV yes None 2.8 yes None 0.0 +----+--------+-----+ +--------+----+ + PFV yes None 1.9 yes None 0.0 +----+--------+-----+ +--------+----+ + FV yes None 2.4 yes None 2.3 +----+--------+-----+ +--------+----+ + POPV yes None 1.7 yes None 2.8 +----+--------+-----+ +--------+----+ + can't evaluate Leland Nugent MD. Electronically signed on 2024 10:04:37 AM This study was performed and interpreted by a service accredited by theIntersocietal Accreditation Commission (IAC/Vascular),www.intersocietal.org/vascular Report generated by [employer]. Final Quoc Sandoval MD US from Last 3 Months Advance Directives * Full Code (Latest Code Status on File) Date Activated Date Inactivated Comments 01/06/2014 8:27 AM 01/06/2014 7:20 PM Care Teams Motor Lodge Clerk Relationship Specialty Start Date End Date Pcp, No . PCP - General 01/06/14
--- OUTSIDE RECORDS SUMMARY | 2024-07-11 12:02 | XMS_ITS | Encounter Summary ---
[facility] Address [address] [place] [address] Care Team Providers Care Lombardi Developer Name Role Phone Found, No Pcp Primary Care Provider Unavailab le Encounter Details Date Type Department Care Team (Latest Contact Info) Description 02/16/2000 Orders Only Salvador Crisostomo MD [address] [place] [address] Social History Tobacco Use Types [...] on filedocumented in this encounter Care Teams Lombardi Developer Relationship Specialty Start Date End Date Found, No Pcp, [address] [place] [address] PCP - General 05/01/16 documented as of this encounter
--- OUTSIDE RECORDS SUMMARY | 2024-07-11 12:02 | XMS_ITS | Encounter Summary ---
Author Organization [facility] Address [address] [facility] [place] [address] Care Team Providers Care Gis Programmer Name Role Phone Found, No Pcp Primary Care Provider Unavailab le Encounter Details Date Type Department Care Team (Latest Contact Info) Description 09/23/1997 Orders Only Nam White MD [address] [place] [address] Social History Tobacco Use Types [...] on filedocumented in this encounter Care Teams Gis Programmer Relationship Specialty Start Date End Date Found, No Pcp, [address] [place] [address] PCP - General 05/01/16 documented as of this encounter
--- NOTE | 2024-07-25 08:50 | W.PM.SLEEP ---
Sleep Study Details Details Interpreting Provider: Jose Date of Sleep Study: 07/11/24 Sleep Study Details: STUDY TYPE:? Home unattended ? BMI:? 35.9 ORDERING PROVIDER:? Jaime INDICATION:? Concern about sleep apnea ? SLEEP SUMMARY:? 411 minutes monitored RESPIRATORY SUMMARY:? AHI 44.1 Low oxygen 79 11.1% of study oxygen less than 90% Snoring 97.7% PERIODIC LIMB MOVEMENTS OF SLEEP:? Not recorded CARDIAC:? Range 59-104, mean 76.3 beats per minute IMPRESSION:? Severe obstructive sleep apnea with significant desaturation RECOMMENDATION: CPAP or bilevel is the best treatment option
== END 2024-07-11 12:01 | disposition home or self-care (01) ==
LOC: SLEEP 12:00
PROVIDERS: PCP Family Medicine; Visit Provider Family Medicine
DX: G47.33 Obstructive sleep apnea (adult) (pediatric) (principal)
CPT/HCPCS: 95806

== ENCOUNTER 2024-08-07 07:07 | Outpatient (CLI) | payer OTHER, SELFPAY ==
--- OUTSIDE RECORDS SUMMARY | 2024-08-07 07:10 | XMS_ITS | Encounter Summary ---
Author Organization [facility] Address [address] [facility] [place] [address] Care Team Providers Care Mechanical Repair Worker Name Role Phone Found, No Pcp Primary Care Provider Unavailab le Encounter Details Date Type Department Care Team (Latest Contact Info) Description 09/23/1997 Orders Only Nam White MD [address] [place] [address] Social History Tobacco Use Types [...] on filedocumented in this encounter Care Teams Mechanical Repair Worker Relationship Specialty Start Date End Date Found, No Pcp, [address] [place] [address] PCP - General 05/01/16 documented as of this encounter
--- OUTSIDE RECORDS SUMMARY | 2024-08-07 07:10 | XMS_ITS | Encounter Summary ---
[facility] Address [address] [place] [address] Care Team Providers Care Photography Instructor Name Role Phone Found, No Pcp Primary Care Provider Unavailab le Encounter Details Date Type Department Care Team (Latest Contact Info) Description 02/16/2000 Orders Only Salvador Crisostomo MD [address] [place] [address] Social History Tobacco Use Types [...] on filedocumented in this encounter Care Teams Photography Instructor Relationship Specialty Start Date End Date Found, No Pcp, [address] [place] [address] PCP - General 05/01/16 documented as of this encounter
--- OUTSIDE RECORDS SUMMARY | 2024-08-07 07:10 | XMS_ITS | Clinical Summary ---
Author Organization [facility] Address [address] [place] [address] Care Team Providers Care Trim Technician Name Role Phone Found, No Pcp MD [...] for each transition of care or referral. [facility] Allergies No known active allergies Medications No known medications Active Problems No known active problems Immunizations Name Administration Dates Next Due DTP 01/16/1985, 1,01/15/1980, 980,1979 Influenza IIV4 (Quadrivalent ) 0.5mL (33556) 06/25/2016 MMR 07/11/1991,10/08/1980 OPV, Trivalent (Orimune or [...] 91 11/20/2016 10:04 AM CDT Temperature 35.8 C (96.4 F) 11/20/2016 10:04 AM CDT Respiratory Rate - - Oxygen Saturation - [...] HepB (1) 1998 Cholesterol 2014 COVID-19 Vaccine (2023- season) 2024 Influenza (#1) 2024 06/25/2016 Zoster/Shingles [...] age to complete this topic Care Teams Trim Technician Relationship Specialty Start Date End Date Found, No Pcp, [address] [address] PCP - General 05/01/16
--- OUTSIDE RECORDS SUMMARY | 2024-08-07 07:10 | XMS_ITS | Clinical Summary ---
Author Organization [employer] [facility] Address [place], [place] [address] Care Team Providers Care Tube Handler Name Role Phone Pcp, No Primary Care Provider Unavailabl e Allergies No known active allergies Medications DIPHENHYDRAMIN E 25 MG TAB 1 to 2 tabs as needed for itching 0 Active MAG HYDROX/AL HYDROX/SIMETH (MYLANTA ORAL) Take by mouth. Active oxyCODONE-acet aminophen, 5-325 mg, (PERCOCET) per tablet Take 1-2 tablets by mouth every 4 hours if needed for Pain (For moderate pain.). Max acetaminophen dose: 4000mg in 24 hrs. 30 tablet 0 4 Active Encounters Date Type Department Care Team Description 07/02/2024 1:00 PM HAM SAWYER Orders Only [facility] at [facility] [address] [place] [address] 2 scans: (2-Ord) US VENOUS INSUFFICIENCY LOWER EXTREMITY BILATERAL ([id number]) 07/02/2024 Travel from Last 3 Months Social History Tobacco Use Types Packs/Day Years Used Date Smoking Tobacco: Former Cigarettes Comments:quit a couple of we eks ago Alcohol Use Standard Drinks/Week Comments Yes 0 (1 standard drink = 0.6 oz pur e alcohol) occas Sex and Gender Information Value Date Recorded Sex Assigned at Not on file Legal Sex Male 5:44 AM HAM SAWYER Gender Identity Not on file Sexual Orientation Not on file Obstetrics History Last Filed Vital Signs Vital Sign Reading Time Taken Comments Blood Pressure 126/74 01/14/2014 1:35 PM CDT Pulse 68 01/14/2014 1:35 PM CDT Temperature 37.1 C (98.7 F) 01/06/2014 10:40 AM CDT Respiratory Rate 16 01/14/2014 1:35 PM CDT [...] 1997 Tetanus booster 1999 COVID-19 vaccine series ( season) 2024 Influenza for age 9-49 04/29/2024 Colonoscopy through age 75 2024 Lipids for age 45-75 2024 Pneumococcal series for age 6-64 Aged Out No longer eligible based on patient's age to complete this topic Procedures Procedure Name Priority Date/Time Associated Diagnosis Comments US VENOUS INSUFFICIENCY LOWER EXTREMITY BILATERAL Routine 07/02/2024 3:14 PM HAM SAWYER Asymptomatic varicose veins of bilateral lower extremities from Last 3 Months Results * US VENOUS INSUFFICIENCY LOWER EXTREMITY BILATERAL (07/02/2024 3:14 PM HAM SAWYER) Anatomical Region Laterality Modality LEGS Ultrasound 07/02/2024 12:5 7 PM HAM SAWYER Narrative 2024 10:04 AM HAM SAWYER VASCULAR ULTRASOUND REPORT YAMILE ECKERT : 1980 Study Date: 07/02/2024 12:57:06 PM Age: 43 years Tech: BSG Gender: M Referring MD: QUOC SANDOVAL Site: [facility] Study performed: Duplex US venous insufficiency, (bilateral). [...] at proximal calf. 7. Incompetent varicose and/or machinist apprentice veins as listed below. COMPARISON: No prior [...] Accreditation Commission (IAC/Vascular), www.intersocietal.org/vascular Report generated by [employer]. Final Procedure Note Leland Nugent MD - 2024 VASCULAR ULTRASOUND REPORT YAMILE ECKERT : 1980 Study Date: 07/02/2024 12:57:06 PM Age: 43 years Tech: BSG Gender: M Referring MD: QUOC SANDOVAL Site: [facility] Study performed: Duplex US venous insufficiency, (bilateral). [...] at proximal calf. 7. Incompetent varicose and/or machinist apprentice veins as listed below. COMPARISON: No prior [...] theIntersocietal Accreditation Commission (IAC/Vascular),www.[email or web address]/vascular Report generated by [employer]. Final us Quoc Sandoval MD Final Result from Last 3 Months Insurance BLUE CROSS OF NON-VT-ITS Advance Directives * Full Code (Latest Code Status on File) Date Activated Date Inactivated Comments 01/06/2014 8:27 AM 01/06/2014 7:20 PM Care Teams Tube Handler Relationship Specialty Start Date End Date Pcp, No . PCP - General 01/06/14
--- NOTE | 2024-08-07 08:34 | W.ANESCHARGE ---
Anesthesia Charges Start Date/Time Anesthesia Start Date: 08/07/24 Anesthesia Start Time: 07:55 Stop Date/Time Anesthesia Stop Date: 08/07/24 Anesthesia Stop Time: 08:30
--- NOTE | 2024-08-07 09:36 | W.ANESCHARGE ---
Anesthesia Charges Start Date/Time Anesthesia Start Date: 08/07/24 Anesthesia Start Time: 07:55 Stop Date/Time Anesthesia Stop Date: 08/07/24 Anesthesia Stop Time: 08:30
== END 2024-08-07 07:08 | disposition home or self-care (01) ==
LOC: OP CLINIC 07:08
PROVIDERS: PCP Family Medicine; Visit Provider Surgery
DX: Z12.11 Encounter for screening for malignant neoplasm of colon (principal); D12.3 Benign neoplasm of transverse colon; D12.5 Benign neoplasm of sigmoid colon
CPT/HCPCS: 00811; 00812; 45385; 88305; J2704